=== PATIENT | female | born 1980 | race African-American/Black ===

== ENCOUNTER 2017-07-12 20:24 | Emergency (ER) | payer MEDICAID, OTHER ==
[~2017-07-12] VITALS: Ht 167.6 cm; Wt 85.0 kg
[2017-07-12] MEDS ORDERED: IBUPROFEN 600MG TABLET PO STA (23:20)
[2017-07-12 23:39] LABS: EOSINOPHILS % 4.8 % (0.0-5.0); HEMATOCRIT. 32.9 % (36.0-48.0); HEMOGLOBIN. 10.7 g/dL (12.0-16.0); LYMPHOCYTES % 34.9 % (20.0-50.0); MEAN CORPUSCULAR HEMOGLOBIN 26.9 pg (28.0-32.0); MEAN CORPUSCULAR VOLUME 82.6 fL (81.0-99.0); MEAN PLATELET VOLUME 8.3 fl (7.4-10.4); NEUTROPHILS % 50.3 % (40.0-76.0); PLATELET 334 x1000/uL (130-400); RED BLOOD CELL COUNT 3.98 mill/uL (4.2-5.4); RED CELL DISTRIBUTION WIDTH 13.8 % (11.6-14.6)
[2017-07-12 23:50] LABS: CHLORIDE 103 mEq/L (98-107)
[2017-07-12 23:53] LABS: HCG SCREEN NEGATIVE
[2017-07-12 23:59] LABS: CARBON DIOXIDE 28 mEq/L (21-32)
[2017-07-13 01:01] VITALS: BP 133/75
== END 2017-07-13 00:55 | disposition home or self-care (01) ==
LOC: ER 20:24
DX: M79.89 Other specified soft tissue disorders (principal); M79.605 Pain in left leg; M79.604 Pain in right leg
CPT/HCPCS: 36415; 80053; 84703; 85025; 99284

== ENCOUNTER 2017-07-23 13:33 | Emergency (ER) | payer MEDICAID ==
[~2017-07-23] VITALS: Ht 167.6 cm; Wt 91.0 kg
[2017-07-23 14:08] VITALS: BP 115/76
== END 2017-07-23 16:29 | disposition left against medical advice (07) ==
LOC: ER 13:33
DX: Z53.21 Procedure and treatment not carried out due to patient leaving prior to being seen by health care provider (principal)

== ENCOUNTER 2017-07-26 13:43 | Emergency (ER) | payer MEDICAID ==
[~2017-07-26] VITALS: Ht 167.6 cm; Wt 88.3 kg
[2017-07-26] MEDS ORDERED: IBUPROFEN 600MG TABLET PO STA (15:41)
[2017-07-26 16:17] LABS: BASOPHILS % 0.8 % (0.0-2.0); EOSINOPHILS % 2.5 % (0.0-5.0); HEMATOCRIT. 33.1 % (36.0-48.0); HEMOGLOBIN. 10.8 g/dL (12.0-16.0); LYMPHOCYTES % 18.9 % (20.0-50.0); MEAN CORPUSCULAR HEMOGLOBIN 26.9 pg (28.0-32.0); MEAN CORPUSCULAR VOLUME 82.6 fL (81.0-99.0); MEAN PLATELET VOLUME 8.3 fl (7.4-10.4); MONOCYTES % 7.4 % (2.0-8.0); NEUTROPHILS % 70.4 % (40.0-76.0); PLATELET 362 x1000/uL (130-400); RED BLOOD CELL COUNT 4.02 mill/uL (4.2-5.4); RED CELL DISTRIBUTION WIDTH 13.7 % (11.6-14.6)
[2017-07-26 16:21] LABS: CHLORIDE 105 mEq/L (98-107); PROTHROMBIN TIME 10.7 sec (9.4-11.6)
[2017-07-26 16:23] LABS: CARBON DIOXIDE 26 mEq/L (21-32)
[2017-07-26 18:31] LABS: CLARITY URINE CLEAR (CLEAR); COLOR URINE YELLOW (YELLOW); GLUCOSE URINE NEGATIVE (NEGATIVE); KETONES URINE 1+ (NEGATIVE); LEUKOCYTE ESTERASE URINE NEGATIVE (NEGATIVE); NITRITE URINE NEGATIVE (NEGATIVE); OCCULT BLOOD URINE NEGATIVE (NEGATIVE); PROTEIN URINE NEGATIVE (NEGATIVE); SPECIFIC GRAVITY URINE 1.022 (1.005-1.030)
[2017-07-26 18:57] VITALS: BP 125/76
[2017-07-27 08:05] LABS: *AMPHETAMINES SCREEN URINE NEGATIVE (NEGATIVE); *BARBITURATES SCREEN URINE NEGATIVE (NEGATIVE); *BENZODIAZEPINES SCREEN URINE NEGATIVE (NEGATIVE); *COCAINE SCREEN URINE NEGATIVE (NEGATIVE); CANNABINOID URINE SCREEN NEGATIVE (NEGATIVE); METHADONE URINE SCREEN NEGATIVE (NEGATIVE); OPIATES URINE SCREEN NEGATIVE (NEGATIVE); PHENCYCLIDINE URINE SCREEN NEGATIVE (NEGATIVE)
== END 2017-07-26 19:10 | disposition home or self-care (01) ==
LOC: ER 14:29
DX: M79.605 Pain in left leg (principal); M79.604 Pain in right leg; M79.89 Other specified soft tissue disorders; L29.9 Pruritus, unspecified
CPT/HCPCS: 36415; 80053; 80305; 81003; 81025; 85025; 85610; 93970; 99285

== ENCOUNTER 2017-12-19 14:05 | Emergency (ER) | payer SELFPAY ==
[~2017-12-19] VITALS: Ht 167.6 cm; Wt 86.0 kg
[2017-12-19 14:19] VITALS: BP 147/85
== END 2017-12-19 20:35 | disposition left against medical advice (07) ==
LOC: ER 15:20
DX: K62.5 Hemorrhage of anus and rectum (principal); Z53.21 Procedure and treatment not carried out due to patient leaving prior to being seen by health care provider